=== PATIENT | male | born 1955 | race African-American/Black ===

== ENCOUNTER 2019-08-16 18:45 | Inpatient (IN) | payer OTHER ==
[~2019-08-16] VITALS: Ht 182.9 cm; Wt 96.6 kg
[2019-08-16 18:45] VITALS: BP_SYST 133
[2019-08-16] MEDS ORDERED: NACL 0.9% 1,000 ML IV ONE (19:44)
[2019-08-16 20:22] LABS: BASOPHILS # (AUTO) 0.1 K/uL (0.0-0.2); BASOPHILS % (AUTO) 1.5 % (0.0-2.0); EOSINOPHILS # (AUTO) 0.2 K/uL (0.0-0.4); EOSINOPHILS % (AUTO) 3.6 % (0.0-4.0); HEMATOCRIT 29.6 % (36-54); HEMOGLOBIN 9.8 g/dL (14.0-18.0); LYMPHOCYTES # (AUTO) 1.6 K/uL (1.0-5.5); LYMPHOCYTES % (AUTO) 24.6 % (20.5-51.5); MEAN CORPUSCULAR HEMOGLOBIN 28 pg (27-31); MEAN CORPUSCULAR HGB CONC 33 % (32-36); MEAN CORPUSCULAR VOLUME 85 fL (79.0-98.0); MONOCYTES # (AUTO) 0.6 K/uL (0.0-1.0); MONOCYTES % (AUTO) 9.4 % (1.7-9.3); NEUTROPHILS # (AUTO) 3.8 K/uL (1.8-7.7); NEUTROPHILS % (AUTO) 60.9 % (40.0-70.0); PLATELET COUNT (AUTO) 202 K/uL (130-430); RED BLOOD CELL COUNT(AUTO) 3.48 MIL/uL (4.2-6.2); RED CELL DISTRIBUTION WIDTH 14.7 % (9.0-15.0); WHITE BLOOD COUNT (AUTO) 6.3 K/uL (4.8-10.8)
[2019-08-16 20:24] LABS: CALCIUM 7.3 mg/dL (8.4-11.0); CREATININE 2.2 mg/dL (0.55-1.30); POTASSIUM 3.4 mmol/L (3.5-5.1)
[2019-08-16 20:30] LABS: ALBUMIN 2.6 g/dL (3.4-4.8); TOTAL BILIRUBIN 0.2 mg/dL (0.0-1.0)
[2019-08-16] MEDS ORDERED: ASPI-1153 PO (21:19)
[2019-08-16] MEDS ORDERED: ACET-73 PO (21:19)
[2019-08-16] MEDS ORDERED: BISA5TAB10 PO (21:21)
[2019-08-16] MEDS ORDERED: BISA-95 PO (21:21)
[2019-08-16] MEDS ORDERED: BISA10SU61 RC (21:22)
[2019-08-16] MEDS ORDERED: CAT.1 PO (21:23)
[2019-08-16] MEDS ORDERED: ROSU20TA2 PO (21:24)
[2019-08-16] MEDS ORDERED: COR12.5 PO (21:24)
[2019-08-16] MEDS ORDERED: APIX2.5T PO (21:26)
[2019-08-16] MEDS ORDERED: DOCU-144 PO (21:26)
[2019-08-16] MEDS ORDERED: FERR325T22 PO (21:27)
[2019-08-16] MEDS ORDERED: NA P133E41 RC (21:28)
[2019-08-16] MEDS ORDERED: TAMS-11 PO (21:28)
[2019-08-16] MEDS ORDERED: FOLI-43 PO (21:29)
[2019-08-16] MEDS ORDERED: HYDR100T25 PO (21:30)
[2019-08-16] MEDS ORDERED: FURO-149 PO (21:30)
[2019-08-16] MEDS ORDERED: INSU100V11 SQ (21:31)
[2019-08-16] MEDS ORDERED: MULT-1089 PO (21:32)
[2019-08-16] MEDS ORDERED: HYDR-4272 PO (21:34)
[2019-08-16] MEDS ORDERED: POTA10TA15 PO (21:35)
[2019-08-16] MEDS ORDERED: NIFE90TA24 PO (21:36)
[2019-08-16] MEDS ORDERED: METO5TAB86 PO (21:37)
[2019-08-16] MEDS ORDERED: SSNOVOLOG SUBCUT (21:41)
[2019-08-17] MEDS ORDERED: INSULIN LISPRO SLIDING SCALE 100 UNITS/ML VIAL (humaLOG) SUBCUT PRN
[2019-08-17 00:48] VITALS: BP_SYST 140
[2019-08-17] MEDS: NACL 0.9% 1,000 ML IV SCH ×2 (01:52→10:10)
[2019-08-17] MEDS ORDERED: ZOLPIDEM TARTRATE 5 MG TABLET PO PRN (06:30)
[2019-08-17] MEDS ORDERED: MORPHINE 2 MG/ML INJ. SYRINGE IVP PRN ×2 (06:30)
[2019-08-17] MEDS ORDERED: MAGNESIUM SULFATE 50 ML IV PRN (06:30)
[2019-08-17] MEDS ORDERED: DOCUSATE SODIUM 100 MG CAPSULE PO PRN (06:30)
[2019-08-17] MEDS ORDERED: MUPIROCIN 2% TOPICAL OINTMENT 22 GM NS PRN (06:30)
[2019-08-17] MEDS ORDERED: LORazepam 2 MG/ML VIAL IVP PRN (06:30)
[2019-08-17] MEDS ORDERED: ONDANSETRON HCL 4 MG/2 ML VIAL IVP PRN (06:30)
[2019-08-17] MEDS ORDERED: POTASSIUM CHLORIDE 20 MEQ TAB.PRT.SR PO PRN (06:30)
[2019-08-17] MEDS ORDERED: ACETAMINOPHEN 325 MG TABLET PO PRN (06:30)
[2019-08-17 06:48] LABS: BILIRUBIN,URINE NEGATIVE (NEGATIVE); CLARITY/URINE CLEAR (CLEAR); COLOR,URINE YELLOW (YELLOW); GLUCOSE,URINE NEGATIVE (NEGATIVE); KETONES,URINE NEGATIVE (NEGATIVE); LEUKOCYTE ESTERASE ,URINE 1+ (NEGATIVE); NITRITE, URINE NEGATIVE (NEGATIVE); PH,URINE 5.5 (5.0-8.0); PROTEIN URINE 3+ (NEGATIVE); UROBILINOGEN,URINE 0.2 (0.2-1.0)
[2019-08-17 06:59] LABS: BLOOD, URINE TRACE (NEGATIVE)
[2019-08-17 07:09] LABS: BACTERIA,URINE MANY /HPF (None Seen); MUCUS,URINE 1+ /LPF (None Seen); WBC,URINE 50-80 /HPF (0-3)
[2019-08-17 08:00] VITALS: BP_SYST 151
[2019-08-17] MEDS ORDERED: IPRATROPIUM/ALBUTEROL SULFATE 3 ML AMPUL.NEB (DUONEB) INH PRN (08:00)
[2019-08-17] MEDS ORDERED: HEPARIN SODIUM,PORCINE 5000 UNITS/ML VIAL SUBCUT SCH (09:00)
[2019-08-17] MEDS: APIXABAN 2.5 MG TABLET PO SCH ×2 (09:26→21:39)
[2019-08-17] MEDS: TAMSULOSIN HCL 0.4 MG CAP PO SCH (09:27)
[2019-08-17] MEDS: ASPIRIN 81 MG TABLET(ECOTRIN) PO SCH (09:27)
[2019-08-17] MEDS: CARVEDILOL 12.5 MG TABLET (COREG) PO SCH ×2 (09:27→21:40)
[2019-08-17] MEDS: FOLIC ACID 1 MG TABLET PO SCH (09:27)
[2019-08-17 09:56] LABS: CREATININE 1.88 mg/dL (0.55-1.30); POTASSIUM 3.4 mmol/L (3.5-5.1)
[2019-08-17] MEDS ORDERED: cefTRIAXone 1 GM in D5W 50 ML IV SCH (10:00)
[2019-08-17 10:08] LABS: CALCIUM 6.8 mg/dL (8.4-11.0)
[2019-08-17] MEDS ORDERED: CALCIUM CARBONATE 500 MG/ TAB.CHEW PO ONE (10:45)
[2019-08-17] MEDS ORDERED: FUROSEMIDE 40 MG/4 ML VIAL IVP ONE (10:45)
[2019-08-17] MEDS ORDERED: COMMUNICATION ORDER XX ONE (10:45)
[2019-08-17 12:00] VITALS: BP_SYST 162
[2019-08-17] MEDS ORDERED: PIPERACILLIN/TAZOBACTAM 3.375 GM/ D5W 50 ML IV SCH ×2 (12:00)
[2019-08-17 16:00] VITALS: BP_SYST 180
[2019-08-17 20:30] VITALS: BP_SYST 198
[2019-08-17] MEDS: CALCIUM CARBONATE 500 MG/ TAB.CHEW PO SCH (21:39)
[2019-08-17 21:40] VITALS: BP_SYST 198
[2019-08-18 02:32] VITALS: BP_SYST 180
[2019-08-18] MEDS: NACL 0.9% 1,000 ML IV SCH ×2 (04:00→17:41)
[2019-08-18 05:41] LABS: TOTAL IRON BIND. CAPACITY 178 ug/dL (250-450)
[2019-08-18 05:43] LABS: CREATININE 1.43 mg/dL (0.55-1.30); POTASSIUM 3.3 mmol/L (3.5-5.1)
[2019-08-18] MEDS ORDERED: hydrALAZINE HCL 25 MG TABLET PO SCH (06:00)
[2019-08-18 08:00] VITALS: BP_SYST 182
[2019-08-18] MEDS: APIXABAN 2.5 MG TABLET PO SCH ×2 (08:41→20:39)
[2019-08-18] MEDS: ASPIRIN 81 MG TABLET(ECOTRIN) PO SCH (08:42)
[2019-08-18] MEDS: FOLIC ACID 1 MG TABLET PO SCH (08:43)
[2019-08-18] MEDS: CALCIUM CARBONATE 500 MG/ TAB.CHEW PO SCH ×3 (08:43→20:37)
[2019-08-18] MEDS: TAMSULOSIN HCL 0.4 MG CAP PO SCH (08:43)
[2019-08-18] MEDS: CARVEDILOL 12.5 MG TABLET (COREG) PO SCH ×2 (08:44→20:38)
[2019-08-18] MEDS: FUROSEMIDE 40 MG/4 ML VIAL IVP SCH (08:44)
[2019-08-18] MEDS ORDERED: cloNIDine HCL 0.2 MG TABLET PO PRN (09:00)
[2019-08-18] MEDS: BISACODYL 5 MG TABLET.DR (DULCOLAX) PO ONE ×2 (09:00→10:39)
[2019-08-18] MEDS ORDERED: cefTRIAXone 1 GM in D5W 50 ML IV SCH (10:00)
[2019-08-18] MEDS: FERROUS SULFATE 325 MG TABLET.DR PO SCH (10:39)
[2019-08-18] MEDS: DOCUSATE SODIUM 100 MG CAPSULE PO SCH ×2 (10:40→20:37)
[2019-08-18] MEDS: NIFEDIPINE 90 MG TABLET.SA (PROCARDIA XL 90 MG) PO SCH (10:41)
[2019-08-18] MEDS: CEFTRIAXONE SOD 1 GM/ D5W 50 ML IV SCH ×2 (10:54)
[2019-08-18 12:10] VITALS: BP_SYST 191
[2019-08-18] MEDS: hydrALAZINE HCL 25 MG TABLET PO SCH ×2 (15:54→22:39)
[2019-08-18 16:44] VITALS: BP_SYST 172
[2019-08-18 20:30] VITALS: BP_SYST 151
[2019-08-18 23:24] VITALS: BP_SYST 162
[2019-08-19 03:15] VITALS: BP_SYST 148
[2019-08-19 05:38] VITALS: BP_SYST 143
[2019-08-19 06:08] LABS: INR 1.1 (0.80-1.20); PROTHROMBIN TIME 10.7 SECS (9.5-12.5)
[2019-08-19 06:17] LABS: ALBUMIN 2.4 g/dL (3.4-4.8); CALCIUM 8.2 mg/dL (8.4-11.0); CREATININE 1.64 mg/dL (0.55-1.30); POTASSIUM 3.5 mmol/L (3.5-5.1); TOTAL BILIRUBIN 0.3 mg/dL (0.0-1.0)
[2019-08-19 06:34] LABS: BASOPHILS # (AUTO) 0.1 K/uL (0.0-0.2); BASOPHILS % (AUTO) 1.2 % (0.0-2.0); EOSINOPHILS # (AUTO) 0.3 K/uL (0.0-0.4); EOSINOPHILS % (AUTO) 4.9 % (0.0-4.0); HEMATOCRIT 28.9 % (36-54); HEMOGLOBIN 9.5 g/dL (14.0-18.0); LYMPHOCYTES # (AUTO) 1.5 K/uL (1.0-5.5); LYMPHOCYTES % (AUTO) 22.1 % (20.5-51.5); MEAN CORPUSCULAR HEMOGLOBIN 28 pg (27-31); MEAN CORPUSCULAR HGB CONC 33 % (32-36); MEAN CORPUSCULAR VOLUME 85 fL (79.0-98.0); MONOCYTES # (AUTO) 0.8 K/uL (0.0-1.0); MONOCYTES % (AUTO) 12.2 % (1.7-9.3); NEUTROPHILS # (AUTO) 4.1 K/uL (1.8-7.7); NEUTROPHILS % (AUTO) 59.6 % (40.0-70.0); PLATELET COUNT (AUTO) 191 K/uL (130-430); RED BLOOD CELL COUNT(AUTO) 3.39 MIL/uL (4.2-6.2); RED CELL DISTRIBUTION WIDTH 14.8 % (9.0-15.0); WHITE BLOOD COUNT (AUTO) 6.9 K/uL (4.8-10.8)
[2019-08-19 06:55] LABS: THYROID STIMULATING HORMONE 2.35 uIu/mL (0.34-4.82)
[2019-08-19] MEDS: hydrALAZINE HCL 25 MG TABLET PO SCH (07:00)
[2019-08-19] MEDS: NACL 0.9% 1,000 ML IV SCH (07:02)
[2019-08-19 08:00] VITALS: BP_SYST 150
[2019-08-19] MEDS ORDERED: CIPR-172 PO (09:06)
[2019-08-19] MEDS: FOLIC ACID 1 MG TABLET PO SCH (09:50)
[2019-08-19] MEDS: CARVEDILOL 12.5 MG TABLET (COREG) PO SCH (09:50)
[2019-08-19] MEDS: CALCIUM CARBONATE 500 MG/ TAB.CHEW PO SCH (09:50)
[2019-08-19] MEDS: DOCUSATE SODIUM 100 MG CAPSULE PO SCH (09:50)
[2019-08-19] MEDS: TAMSULOSIN HCL 0.4 MG CAP PO SCH (09:51)
[2019-08-19] MEDS: ASPIRIN 81 MG TABLET(ECOTRIN) PO SCH (09:51)
[2019-08-19] MEDS: NIFEDIPINE 90 MG TABLET.SA (PROCARDIA XL 90 MG) PO SCH (09:51)
[2019-08-19] MEDS: FUROSEMIDE 40 MG/4 ML VIAL IVP SCH (09:51)
[2019-08-19] MEDS: FERROUS SULFATE 325 MG TABLET.DR PO SCH (09:51)
[2019-08-19] MEDS: APIXABAN 2.5 MG TABLET PO SCH (09:52)
[2019-08-19] MEDS: CEFTRIAXONE SOD 1 GM/ D5W 50 ML IV SCH ×2 (11:21)
[2019-08-19 11:42] VITALS: BP_SYST 152
[2019-08-19 12:37] VITALS: BP_SYST 152
== END 2019-08-19 15:20 | DRG 682 ==
LOC: SED 18:45 → STU 23:52
PROVIDERS: ADMIT General Practice; ATTEND General Practice
DX: N17.0 Acute kidney failure with tubular necrosis (principal); I50.43 Acute on chronic combined systolic (congestive) and diastolic (congestive) heart failure; N39.0 Urinary tract infection, site not specified; E44.0 Moderate protein-calorie malnutrition; I13.0 Hypertensive heart and chronic kidney disease with heart failure and stage 1 through stage 4 chronic kidney disease, or unspecified chronic kidney disease; D63.8 Anemia in other chronic diseases classified elsewhere; K21.9 Gastro-esophageal reflux disease without esophagitis; E87.6 Hypokalemia; R55 Syncope and collapse; E83.51 Hypocalcemia; N18.9 Chronic kidney disease, unspecified; E78.5 Hyperlipidemia, unspecified; E11.22 Type 2 diabetes mellitus with diabetic chronic kidney disease; E11.51 Type 2 diabetes mellitus with diabetic peripheral angiopathy without gangrene; Z82.49 Family history of ischemic heart disease and other diseases of the circulatory system; Z83.3 Family history of diabetes mellitus; Z89.512 Acquired absence of left leg below knee; Z87.440 Personal history of urinary (tract) infections; Z79.01 Long term (current) use of anticoagulants; Z91.11 Patient's noncompliance with dietary regimen; Z79.899 Other long term (current) drug therapy; Z79.82 Long term (current) use of aspirin
CPT/HCPCS: 36415; 36600; 70450-TC; 71045; 76770; 80048; 80053; 81000-TC; 82803-TC; 82962; 83540-TC; 83550-TC; 83690-TC; 83735-TC; 83880; 84443-TC; 84484; 85025; 85049-TC; 85379; 85610-TC; 86710; 87081; 93005; 93306; 93970; 94640; 96360; 96361; 97116-GP; 99285; G0378; J0696; J1940; J2543; J7030; J7060; J7620

== ENCOUNTER 2019-09-04 15:37 | Inpatient (IN) | payer MEDICAID, OTHER ==
[~2019-09-04] VITALS: Ht 182.9 cm; Wt 91.6 kg
[2019-09-04 15:37] VITALS: BP_SYST 146
[~2019-09-04 15:37] MED LIST: ACET-73 PO; APIX2.5T PO; ASPI-1153 PO; BISA10SU61 RC; BISA5TAB10 PO; CAT.1 PO; CIPR-172 PO; COR12.5 PO; DOCU-144 PO; FERR325T22 PO; FOLI-43 PO; FURO-149 PO; HYDR-4272 PO; HYDR100T25 PO; INSU100V11 SQ; METO5TAB86 PO; MULT-1089 PO; NA P133E41 RC; NIFE90TA24 PO; POTA10TA15 PO; ROSU20TA2 PO; SSNOVOLOG SUBCUT; TAMS-11 PO
--- NOTE | 2019-09-04 15:37 | NUR ---
Patient to ER bed 6 to gown for evaluation. Side rails up.
--- NOTE | 2019-09-04 15:38 | NUR ---
Patient is awake, alert, and oriented x4. Patient came via ambulance from [facility] with a complaint of cough and congestion x1 week. Patient presents with productive cough, patient does not know what color, states he does not look at it.
[2019-09-04] MEDS ORDERED: PRO40 PO (16:12)
[2019-09-04] MEDS ORDERED: ALBU8.5H8 INH (16:12)
[2019-09-04] MEDS ORDERED: CODE10LI PO (16:12)
[2019-09-04] MEDS ORDERED: INSU100V11 SQ (16:12)
[2019-09-04] MEDS ORDERED: POTA20TA83 PO (16:12)
[2019-09-04] MEDS ORDERED: AZIT250T PO (16:12)
--- NOTE | 2019-09-04 16:12 | NUR ---
Medication reconciliation completed with information provided by Cayla. Any prior medication reconciliation on file was reviewed and corrected.
--- NOTE | 2019-09-04 16:20 | NUR ---
ER Dr. Rico at bedside examining patient.
[2019-09-04 17:03] LABS: BASOPHILS # (AUTO) 0.1 K/uL (0.0-0.2); BASOPHILS % (AUTO) 1.3 % (0.0-2.0); EOSINOPHILS # (AUTO) 0.3 K/uL (0.0-0.4); EOSINOPHILS % (AUTO) 6.5 % (0.0-4.0); HEMATOCRIT 29.6 % (36-54); HEMOGLOBIN 9.8 g/dL (14.0-18.0); LYMPHOCYTES # (AUTO) 1.4 K/uL (1.0-5.5); LYMPHOCYTES % (AUTO) 31.8 % (20.5-51.5); MEAN CORPUSCULAR HEMOGLOBIN 28 pg (27-31); MEAN CORPUSCULAR HGB CONC 33 % (32-36); MEAN CORPUSCULAR VOLUME 84 fL (79.0-98.0); MONOCYTES # (AUTO) 0.7 K/uL (0.0-1.0); MONOCYTES % (AUTO) 14.8 % (1.7-9.3); NEUTROPHILS # (AUTO) 2.1 K/uL (1.8-7.7); NEUTROPHILS % (AUTO) 45.6 % (40.0-70.0); PLATELET COUNT (AUTO) 215 K/uL (130-430); RED BLOOD CELL COUNT(AUTO) 3.53 MIL/uL (4.2-6.2); RED CELL DISTRIBUTION WIDTH 14.7 % (9.0-15.0); WHITE BLOOD COUNT (AUTO) 4.5 K/uL (4.8-10.8)
[2019-09-04 17:04] LABS: BILIRUBIN,URINE NEGATIVE (NEGATIVE); CLARITY/URINE CLEAR (CLEAR); COLOR,URINE YELLOW (YELLOW); GLUCOSE,URINE NEGATIVE (NEGATIVE); KETONES,URINE NEGATIVE (NEGATIVE); LEUKOCYTE ESTERASE ,URINE NEGATIVE (NEGATIVE); NITRITE, URINE NEGATIVE (NEGATIVE); PROTEIN URINE 3+ (NEGATIVE); UROBILINOGEN,URINE 0.2 (0.2-1.0)
[2019-09-04 17:14] LABS: CALCIUM 7.9 mg/dL (8.4-11.0); CREATININE 2.08 mg/dL (0.55-1.30)
[2019-09-04 17:17] LABS: ALBUMIN 2.8 g/dL (3.4-4.8); TOTAL BILIRUBIN 0.2 mg/dL (0.0-1.0)
[2019-09-04 17:41] LABS: BACTERIA,URINE FEW /HPF (None Seen); BLOOD, URINE TRACE (NEGATIVE); FINE GRANULAR CASTS,URINE 0-10 /LPF (None Seen); MUCUS,URINE None Seen /LPF (None Seen); URINE AMORPHOUS URATE 2+ /HPF (None Seen); WBC,URINE 0-3 /HPF (0-3)
[2019-09-04] MEDS ORDERED: PIPERACILLIN/TAZO 3.375 GM in NS 50 ML IV ONE (18:00)
--- NOTE | 2019-09-04 18:01 | NUR ---
Patient will be admitted to care of Dr. Ortega. Admitted to telemetry unit. No rooms available at this time per MT Mina. Belongings list completed. Complete and up to date summary report printed. SBAR report to be given at bedside with opportunity for questions.
[2019-09-04] MEDS ORDERED: PIPERACILLIN/TAZOBACTAM 3.375 GM/VIAL (ZOSYN) IV ONE ×2 (18:18→23:06)
[2019-09-04 18:31] LABS: PROTHROMBIN TIME 10.4 SECS (9.5-12.5)
--- NOTE | 2019-09-04 18:38 | NUR ---
Patient is resting in bed. No signs or symptoms of distress noted.
--- NOTE | 2019-09-04 19:15 | NUR ---
Report given to MT Mckinney for continuation of care.
--- NOTE | 2019-09-04 19:15 | NUR ---
Report received from MT Dutta. Patient to be admitted, awaiting room assignment. Will continue to follow up and monitor.
--- NOTE | 2019-09-04 19:40 | NUR ---
Patient will be admitted to care of Dr. Ortega. Admitted to Telemetry unit. Will go to room 100B. Belongings list completed. Complete and up to date summary report printed. SBAR report to be given at bedside with opportunity for questions.
--- NOTE | 2019-09-04 20:49 | NUR ---
ADMIT NOTE Received pt from ER to the floor with a diagnosis of PNA. Admission process initiated. patient oriented to pain management, safety and call light-teach back done AWAKE alert call hackett with patient FALL measures explained patient has left BKA verbalize understanding .
[2019-09-04 20:53] VITALS: BP_SYST 137
--- NOTE | 2019-09-04 21:15 | NUR ---
BSG BLOOD SUGAR GLUCOSE 92 mg dl apple juice po given & tolerating patient awake also alert .
[2019-09-04] MEDS ORDERED: ACETAMINOPHEN 500 MG TABLET PO PRN (22:00)
[2019-09-04] MEDS ORDERED: cloNIDine HCL 0.1 MG TABLET PO PRN (22:00)
[2019-09-04] MEDS ORDERED: BISACODYL 5 MG TABLET.DR (DULCOLAX) PO PRN (22:00)
[2019-09-04] MEDS ORDERED: CODEINE PHOSPHATE PO PRN (22:00)
[2019-09-04] MEDS ORDERED: GUAIFENESIN PO PRN (22:00)
[2019-09-04] MEDS ORDERED: ALBUTEROL MDI INHALATION 8 GM INH INH PRN (22:00)
[2019-09-04] MEDS ORDERED: HYDROcodone/ACETAMIN 5-325 MG TAB (NORCO/ VICODIN) PO PRN (22:00)
[2019-09-04] MEDS ORDERED: SODIUM PHOSPHATE,MONO-DIBASIC 133 ML ENEMA RC PRN (22:00)
[2019-09-04] MEDS ORDERED: BISACODYL 10 MG/SUPPOSITORY RC PRN (22:00)
[2019-09-04] MEDS ORDERED: DOCUSATE SODIUM 100 MG CAPSULE PO PRN (22:00)
[2019-09-04] MEDS ORDERED: [UNRECOGNIZED DRUG - OTHER] PO PRN (22:00)
[2019-09-04] MEDS ORDERED: ONDANSETRON HCL 4 MG/2 ML VIAL IVP PRN (22:15)
[2019-09-04] MEDS ORDERED: LORazepam 2 MG/ML VIAL IVP PRN (22:15)
[2019-09-04] MEDS ORDERED: INSULIN REGULAR, HUMAN 100 UNITS/ML, 10 ML VIAL (humuLIN R) SUBCUT PRN (22:15)
[2019-09-04] MEDS: LR 1,000 ML IV SCH (23:26)
--- NOTE | 2019-09-04 23:37 | NUR ---
Renal ULTRASOUND in progress @ the bedside / .
[2019-09-05] MEDS ORDERED: PIPERACILLIN/TAZO 3.375 GM in NS 50 ML IV SCH ×2
[2019-09-05 00:25] VITALS: BP_SYST 137
--- NOTE | 2019-09-05 00:38 | NUR ---
CONSULT: CONSULT CALLED FOR DR. NESTOR HERR I SPOKE WITH BRANDON MCCORMICK REASON FOR CONSULT: PNEUMONIA REQUESTING CONSULT: DR. AUGIE MAGALLON PLANT ASSOCIATE PHONE NUMBER:[phone]
--- NOTE | 2019-09-05 00:45 | NUR ---
CONSULT: CONSULT CALLED FOR DR. FERGUSON I SPOKE WITH BRANDON MCCORMICK REASON FOR CONSULT: RENAL FAILURE REQUESTING CONSULT: DR. AUGIE MAGALLON SENIOR TALENT ACQUISITION SPECIALIST PHONE NUMBER: [phone]
--- NOTE | 2019-09-05 01:43 | NUR ---
DR NESTOR AGUILA HERE TO SEE PATIENT NEW ORDERS OBTAINED .
--- NOTE | 2019-09-05 02:16 | NUR ---
FLU SWAB A & B nasal COLLECTED & SENT TO LAB .
[2019-09-05] MEDS ORDERED: OXYMETAZOLINE HCL 0.05% NASAL SPRAY NS PRN (02:30)
--- NOTE | 2019-09-05 05:04 | NUR ---
PATIENT AWAKE USING URINAL HOB ELEVATED , Patient X RAY SINUS , CALLED & SPOKE WITH RD & AWARE OF ORDER ARUNA .
[2019-09-05] MEDS: HYDROcodone/ACETAMIN 10-325 MG TAB PO PRN ×2 (06:44→22:41)
[2019-09-05 07:39] LABS: BASOPHILS % (AUTO) 0.8 % (0.0-2.0); EOSINOPHILS # (AUTO) 0.3 K/uL (0.0-0.4); EOSINOPHILS % (AUTO) 5.9 % (0.0-4.0); HEMATOCRIT 30.6 % (36-54); LYMPHOCYTES # (AUTO) 1.1 K/uL (1.0-5.5); MEAN CORPUSCULAR HEMOGLOBIN 28 pg (27-31); MEAN CORPUSCULAR HGB CONC 33 % (32-36); MEAN CORPUSCULAR VOLUME 84 fL (79.0-98.0); MONOCYTES % (AUTO) 18.4 % (1.7-9.3); NEUTROPHILS # (AUTO) 2.9 K/uL (1.8-7.7); NEUTROPHILS % (AUTO) 54.9 % (40.0-70.0); PLATELET COUNT (AUTO) 222 K/uL (130-430); RED BLOOD CELL COUNT(AUTO) 3.63 MIL/uL (4.2-6.2); RED CELL DISTRIBUTION WIDTH 14.7 % (9.0-15.0); WHITE BLOOD COUNT (AUTO) 5.4 K/uL (4.8-10.8)
[2019-09-05 07:52] LABS: CREATININE 1.76 mg/dL (0.55-1.30); PHOSPHORUS 4.6 mg/dL (2.7-4.5); POTASSIUM 3.6 mmol/L (3.5-5.1)
[2019-09-05 07:55] VITALS: BP_SYST 156
--- NOTE | 2019-09-05 07:55 | NUR ---
INITIAL ROUNDS Received pt AAOx4, no s/s resp distress, no c/o pain or discomfort. IVF infusing well to left hand at ordered rate with no s/s infiltration to site. Pt just used urinal with yellow urine noted. Plan of care fo9r the day reviewed with pt-pt verbalized his understanding. Pain management, PNA, skin and safety discussed-teach back done. Side rails up x3, bed alarm on for safety.
[2019-09-05] MEDS: FUROSEMIDE 40 MG TABLET PO SCH (09:48)
[2019-09-05] MEDS: NIFEDIPINE 90 MG TABLET.SA (PROCARDIA XL 90 MG) PO SCH (09:49)
[2019-09-05] MEDS: hydrALAZINE HCL 25 MG TABLET PO SCH ×3 (09:49→22:43)
[2019-09-05] MEDS: CARVEDILOL 12.5 MG TABLET (COREG) PO SCH ×2 (09:49→22:42)
[2019-09-05] MEDS: PIPERACILLIN/TAZO 3.375/DEX-IS 50 ML IV SCH ×2 (09:50→16:53)
[2019-09-05] MEDS: ASPIRIN 81 MG TABLET(ECOTRIN) PO SCH (09:50)
[2019-09-05] MEDS: FERROUS GLUCONATE 300 MG TABLET PO SCH ×2 (09:50→22:44)
[2019-09-05] MEDS: POTASSIUM CHLORIDE 20 MEQ TAB.PRT.SR PO SCH (09:50)
[2019-09-05] MEDS: PANTOPRAZOLE SODIUM 40 MG TAB PO SCH (09:50)
[2019-09-05] MEDS: MULTIVITAMINS TAB 1 TABLET PO SCH (09:50)
[2019-09-05] MEDS: FOLIC ACID 1 MG TABLET PO SCH (09:50)
[2019-09-05] MEDS: METOCLOPRAMIDE HCL 10 MG TABLET PO SCH ×2 (09:50→22:43)
[2019-09-05] MEDS: TAMSULOSIN HCL 0.4 MG CAP PO SCH (09:50)
[2019-09-05] MEDS: FLUTICASONE PROPIONATE 50 mCg/SPRAY 16 GM NS SCH (09:51)
[2019-09-05] MEDS: INSULIN GLARGINE 100 UNITS/ML 10 ML VIAL SQ SCH (09:55)
[2019-09-05] MEDS: APIXABAN 2.5 MG TABLET PO SCH ×2 (09:56→22:45)
[2019-09-05 10:09] LABS: ERYTHROCYTE SEDIMENTATION RATE 70 MM/HR (0-15)
--- NOTE | 2019-09-05 10:20 | NUR ---
BLADDER SCAN/ Pt seen by Dr. Smith, Bladder Scan ordered due to pt showing 400 ml on renal UZS. Informed MD that I emptied the pt's urinal of 480 ml just an hour ago. Bladder scan done on pt-noted 72 ml urine noted. No distension. Pt tolerated well.
--- NOTE | 2019-09-05 10:46 | NUR ---
Nutrition Update David Scale 17 noted. Pt admitted for pneumonia, elevated troponin. Diet: cardiac BMI: 27.8 kg/m2 RD to follow per nutrition care standards.
--- NOTE | 2019-09-05 11:03 | NUR ---
UROLOGY CONSULT spoke to Jonathan from the office of Dr Dixon and made aware, she will inform Dr. Dixon.
--- NOTE | 2019-09-05 11:19 | NUR ---
OFFICE OF THE UROLOGIST DR Blair ORTIZ CALLED RE: DENIAL OF THE UROLOGY CONSULT. SPOKE TO MINA.
[2019-09-05] MEDS: ALBUTEROL SULFATE 0.083% 2.5 MG/3 ML VIAL.NEB INH PRN ×2 (13:27→19:32)
--- NOTE | 2019-09-05 14:10 | NUR ---
ROUNDS Pt resting quietly in bed with no s/s resp distress, no c/o pain or discomfort. Pt states he feels better since breathing treatment earlier. Needs met, call light within reach.
[2019-09-05 14:16] VITALS: BP_SYST 156
--- NOTE | 2019-09-05 15:39 | NUR ---
Delinquent Tax Collector Note RUBBER GASKET INSPECTOR TRIMMER conducted a Discharge Plan Assessment. JAGRUTI met with patient at bedside who is awake and oriented but lethargic. Patient worked at [employer] in [place] up until January when he had a BKA. He then went to [facility]. He subsequently went to [facility] in March. His PPO insurance stopped, (probably 08/27/19) due to his no longer working and he did not pursue further health insurance. As per Álvaro at [facility], , patient has had a difficult time affording [facility] and has been declining there. He is on the med program as he was not managing his DM well. Álvaro wants to evaluate him prior to discharge to determine if he can return to [place]. If not, patient may need SNF, which would be under [employer] [facility], a barrier to placement. Possibly patient would need AL that provides a higher level of care. Kenneth Barron has met with patient to apply for [employer]. Unclear if patient will qualify. Will continue to follow. Addendum: 09/05/19 at 1609 by Katie Rocha LCSW Phoned patient's son, Ernie Zapien [phone], no answer, no voicemail. Phoned son, Shaheed Zapien [phone]. Shaheed stated he thought patient's income was about $4000/month. They looked at [employer] but the share of cost would be high. He said the two sons were pursuing COBRA. Son Ernie called. He stated patient just started getting Social Security income this month and that the total disability and SS income was about $4100. He said that he had not started COBRA for patient and wanted to see if [employer] was a better choice. RUBBER GASKET INSPECTOR TRIMMER explained that the share of cost would be very high and care options would be better with COBRA. Gave him Kenneth's number to follow up. Notified him that his voicemail is full. Notified Kenneth of above. He will follow up.
[2019-09-05 16:15] VITALS: BP_SYST 160
--- NOTE | 2019-09-05 16:15 | NUR ---
BATHROOM Pt assisted to the bathroom using the wheelchair. Pt had a BM and voided. Bladder scan done soon after with 54 ml of urine noted. Pt tolerated well.
[2019-09-05] MEDS: LR 1,000 ML IV SCH ×2 (16:45→18:15)
[2019-09-05] MEDS: guaiFENesin/DEXTROMETHORPHAN 10 ML UDC PO PRN (17:09)
--- NOTE | 2019-09-05 18:38 | NUR ---
CLOSING NOTE Pt resting quietly in bed with no s/s resp distress, no c/o pain or discomfort. IVF infusing well to LFA at ordered rate with no s/s infiltration to site. Needs met, call light within reach.
[2019-09-05 20:34] VITALS: BP_SYST 145
--- NOTE | 2019-09-05 21:15 | NUR ---
PATIENT AWAKE ALERT FAMILY @ THE BEDSIDE , HOB ELEVATED ON ROOM AIR 02 SAT 96 % chest movement symmetrical also unlabored .
[2019-09-05] MEDS: ATORVASTATIN 20 MG TABLET PO SCH (22:42)
--- NOTE | 2019-09-05 23:44 | NUR ---
NORCO 10 /325 MG PO ADMINISTER FOR GENERAL PAIN & HELPFUL .
[2019-09-05 23:50] VITALS: BP_SYST 162
[2019-09-06] MEDS: PIPERACILLIN/TAZO 3.375/DEX-IS 50 ML IV SCH ×3 (00:16→17:18)
--- NOTE | 2019-09-06 02:12 | NUR ---
Hourly Rounding HOB elevated chest movement symmetrical no use of accessory muscles no acute distress .
--- NOTE | 2019-09-06 02:13 | NUR ---
Bed side URINAL PATIENT USING as needed clear yellow urine noted no complaints made .
[2019-09-06] MEDS: guaiFENesin/DEXTROMETHORPHAN 10 ML UDC PO PRN ×3 (06:16→20:38)
[2019-09-06] MEDS: LR 1,000 ML IV SCH (06:16)
--- NOTE | 2019-09-06 06:21 | NUR ---
SPUTUM COLLECTION COLLECTED & SENT LAB .
--- NOTE | 2019-09-06 06:22 | NUR ---
ROBITUSSIN 5 ML PO GIVEN FOR COUGH & HELPFUL / .
[2019-09-06 08:09] LABS: ALBUMIN 2.4 g/dL (3.4-4.8); CALCIUM 7.2 mg/dL (8.4-11.0); CREATININE 2.04 mg/dL (0.55-1.30); PHOSPHORUS 4.8 mg/dL (2.7-4.5); POTASSIUM 3.4 mmol/L (3.5-5.1); TOTAL BILIRUBIN 0.3 mg/dL (0.0-1.0)
[2019-09-06 08:41] VITALS: BP_SYST 158
[2019-09-06 08:41] LABS: BASOPHILS # (AUTO) 0.1 K/uL (0.0-0.2); BASOPHILS % (AUTO) 0.9 % (0.0-2.0); EOSINOPHILS # (AUTO) 0.3 K/uL (0.0-0.4); EOSINOPHILS % (AUTO) 4.7 % (0.0-4.0); HEMOGLOBIN 9.4 g/dL (14.0-18.0); LYMPHOCYTES # (AUTO) 1.4 K/uL (1.0-5.5); LYMPHOCYTES % (AUTO) 25.7 % (20.5-51.5); MEAN CORPUSCULAR HEMOGLOBIN 28 pg (27-31); MEAN CORPUSCULAR HGB CONC 34 % (32-36); MEAN CORPUSCULAR VOLUME 83 fL (79.0-98.0); MONOCYTES # (AUTO) 0.9 K/uL (0.0-1.0); MONOCYTES % (AUTO) 17.1 % (1.7-9.3); NEUTROPHILS # (AUTO) 2.7 K/uL (1.8-7.7); NEUTROPHILS % (AUTO) 51.6 % (40.0-70.0); PLATELET COUNT (AUTO) 204 K/uL (130-430); RED BLOOD CELL COUNT(AUTO) 3.37 MIL/uL (4.2-6.2); RED CELL DISTRIBUTION WIDTH 14.5 % (9.0-15.0); WHITE BLOOD COUNT (AUTO) 5.3 K/uL (4.8-10.8)
[2019-09-06] MEDS: NIFEDIPINE 90 MG TABLET.SA (PROCARDIA XL 90 MG) PO SCH (08:46)
[2019-09-06] MEDS: hydrALAZINE HCL 25 MG TABLET PO SCH ×3 (08:47→20:36)
[2019-09-06] MEDS: ASPIRIN 81 MG TABLET(ECOTRIN) PO SCH (08:47)
[2019-09-06] MEDS: METOCLOPRAMIDE HCL 10 MG TABLET PO SCH ×2 (08:47→20:37)
[2019-09-06] MEDS: POTASSIUM CHLORIDE 20 MEQ TAB.PRT.SR PO SCH (08:47)
[2019-09-06] MEDS: MULTIVITAMINS TAB 1 TABLET PO SCH (08:47)
[2019-09-06] MEDS: FERROUS GLUCONATE 300 MG TABLET PO SCH ×2 (08:47→20:37)
[2019-09-06] MEDS: TAMSULOSIN HCL 0.4 MG CAP PO SCH (08:47)
[2019-09-06] MEDS: FOLIC ACID 1 MG TABLET PO SCH (08:48)
[2019-09-06] MEDS: CARVEDILOL 12.5 MG TABLET (COREG) PO SCH ×2 (08:48→20:37)
[2019-09-06] MEDS: FUROSEMIDE 40 MG TABLET PO SCH (08:48)
[2019-09-06] MEDS: PANTOPRAZOLE SODIUM 40 MG TAB PO SCH (08:48)
[2019-09-06] MEDS: FLUTICASONE PROPIONATE 50 mCg/SPRAY 16 GM NS SCH (08:50)
[2019-09-06] MEDS: APIXABAN 2.5 MG TABLET PO SCH ×2 (09:00→20:40)
[2019-09-06] MEDS: INSULIN GLARGINE 100 UNITS/ML 10 ML VIAL SQ SCH (09:00)
[2019-09-06 10:25] LABS: ERYTHROCYTE SEDIMENTATION RATE 75 MM/HR (0-15)
[2019-09-06 12:09] VITALS: BP_SYST 147
--- NOTE | 2019-09-06 12:15 | NUR ---
Mobility Out of bed to bathroom via wheelchair mild dizziness out of bed safety/fall precaution initiated, perineal care given .
[2019-09-06 15:21] VITALS: BP_SYST 130
--- NOTE | 2019-09-06 17:15 | NUR ---
No sign of acute respiratory distress, occasionally coughing , afebrile, needs attended.
[2019-09-06 19:00] VITALS: BP_SYST 133
--- NOTE | 2019-09-06 19:15 | NUR ---
change of shift.pt.presents quiescent affect;calm,resting.pt.presents admit dx;pna.pt.presents congested chest.breathing pattern slightly labored @room air.no c/o pain,nausea.pt.hx;lt.bka.pt's wheel-chair w/in the room.iv access;iv fluids infusing.call light/telephone placed w/in reach of the pt.
[2019-09-06 20:00] VITALS: BP_SYST 133
--- NOTE | 2019-09-06 20:00 | NUR ---
pt.assessed v/s assessed;values w/in normal limits.no c/o pain,nausea.i have apprised the pt.that i may provide snacks/beverages w/in the shift;no requests posited @this hour.i have attended to the urinal,measured/placed w/in reach of the pt.iv access intact;patent. iv fluids infusing.pt.presents lt.bka.pt.capable to reposition self.general status stable.respiratory status stable:slightly labored; O2-0SAT%=96%. call light/telephone w/in reach of the pt.
--- NOTE | 2019-09-06 20:30 | NUR ---
i have assessed the blood glucose;values:123mg/dl.i have apprised the pt.of the value.no requests posited @this hour.
[2019-09-06] MEDS: ATORVASTATIN 20 MG TABLET PO SCH (20:37)
--- NOTE | 2019-09-06 21:00 | NUR ---
2100pmedications administered.i have administered:robitussin;dm;5ml per the pt';s requests;pt.presents cough. no requests posited @this hour.
--- NOTE | 2019-09-06 22:00 | NUR ---
pt.assessed.pt.presents quiescent affect;calm,somnolent.iv access intact;patent;iv fluids infusing.i have attended to the urinal;measured,placed w/in reach of the pt.general status stable.respiratory status stable;o2-sat%=96%.pt.capable to reposition self.call light/telephone w/in reach of the pt.
[2019-09-07] VITALS: BP_SYST 135
--- NOTE | 2019-09-07 | NUR ---
pt.assessed v/s assessed;values w/in normal limits.no c/o pain,nausea.no requests posited@this hour.iv access intact;patent. i have attended to the urinal;measured;placed w/in reach of the pt.general status stable.respiratory status stable;o2-sat%= 96%pt.capable to reposition self.call light/telephone w/in reach of the pt.
[2019-09-07] MEDS: LR 1,000 ML IV SCH ×4 (00:15→20:29)
[2019-09-07] MEDS: PIPERACILLIN/TAZO 3.375/DEX-IS 50 ML IV SCH ×3 (01:10→16:39)
--- NOTE | 2019-09-07 02:00 | NUR ---
pt.assessed.pt.presents quiescent affect;calm,somnolent.iv access intact;patent;iv fluids infusing.i have inspected the urinal clean.w/in reach of the pt.general status stable.respiratory status stable;02-sat%=96%.pt capable to reposition self.call light/telephone w/in reach of the pt.
--- NOTE | 2019-09-07 04:00 | NUR ---
pt.assessed.pt.presents quiescent affect;calm,somnolent.iv access intact;patent;iv fluids infusing.urinal attended to measured/placed w/in the pt's reach general status stable.respiratory status stable:o2-sat%=96%.pt capble to reposition self.call light/telephone w/in reach of the pt.
--- NOTE | 2019-09-07 06:30 | NUR ---
pt.assessed.blood glucose assessed;value;82mg/dl.pt. declined a snack.pt stated he feels ok;pt is asymptomatic. iv access intact;patent;iv fluids infusing.pt.capable to reposition self.o2-sat%=94%.call light/telephone w/in reach of the pt.
[2019-09-07 07:12] LABS: C-REACTIVE PROTEIN QUANT 6.3 mg/dL (0-0.5); CALCIUM 7.4 mg/dL (8.4-11.0); CREATININE 1.94 mg/dL (0.55-1.30); PHOSPHORUS 4.8 mg/dL (2.7-4.5); POTASSIUM 3.4 mmol/L (3.5-5.1)
--- NOTE | 2019-09-07 07:38 | NUR ---
Opening Note received bedside SBAR report from salesperson hearing aids RN, patient resting in bed, no acute distress noted, respirations even and unlabored, educated patient on use of call light and asked to call for assistance, patient verbalized understanding, call light in reach, educated patient on use of bed alarm for patient safety, patient refusing bed alarm, bed in low and locked position.
[2019-09-07 08:00] VITALS: BP_SYST 147
[2019-09-07] MEDS: TAMSULOSIN HCL 0.4 MG CAP PO SCH (08:53)
[2019-09-07] MEDS: ASPIRIN 81 MG TABLET(ECOTRIN) PO SCH (08:53)
[2019-09-07] MEDS: POTASSIUM CHLORIDE 20 MEQ TAB.PRT.SR PO SCH (08:53)
[2019-09-07] MEDS: PANTOPRAZOLE SODIUM 40 MG TAB PO SCH (08:54)
[2019-09-07] MEDS: NIFEDIPINE 90 MG TABLET.SA (PROCARDIA XL 90 MG) PO SCH (08:54)
[2019-09-07] MEDS: FOLIC ACID 1 MG TABLET PO SCH (08:54)
[2019-09-07] MEDS: hydrALAZINE HCL 25 MG TABLET PO SCH ×3 (08:54→20:30)
[2019-09-07] MEDS: FERROUS GLUCONATE 300 MG TABLET PO SCH ×2 (08:54→20:30)
[2019-09-07] MEDS: METOCLOPRAMIDE HCL 10 MG TABLET PO SCH ×2 (08:54→20:31)
[2019-09-07] MEDS: FUROSEMIDE 40 MG TABLET PO SCH (08:55)
[2019-09-07] MEDS: CARVEDILOL 12.5 MG TABLET (COREG) PO SCH ×2 (08:55→20:30)
[2019-09-07] MEDS: MULTIVITAMINS TAB 1 TABLET PO SCH (08:55)
[2019-09-07] MEDS: FLUTICASONE PROPIONATE 50 mCg/SPRAY 16 GM NS SCH (08:56)
[2019-09-07] MEDS: APIXABAN 2.5 MG TABLET PO SCH ×2 (08:57→20:31)
[2019-09-07 09:28] LABS: BASOPHILS % (AUTO) 0.6 % (0.0-2.0); EOSINOPHILS # (AUTO) 0.3 K/uL (0.0-0.4); EOSINOPHILS % (AUTO) 5.9 % (0.0-4.0); HEMATOCRIT 27.5 % (36-54); HEMOGLOBIN 9.6 g/dL (14.0-18.0); LYMPHOCYTES # (AUTO) 1.6 K/uL (1.0-5.5); LYMPHOCYTES % (AUTO) 29.6 % (20.5-51.5); MEAN CORPUSCULAR HEMOGLOBIN 29 pg (27-31); MEAN CORPUSCULAR HGB CONC 35 % (32-36); MEAN CORPUSCULAR VOLUME 84 fL (79.0-98.0); MONOCYTES % (AUTO) 17.5 % (1.7-9.3); NEUTROPHILS # (AUTO) 2.6 K/uL (1.8-7.7); NEUTROPHILS % (AUTO) 46.4 % (40.0-70.0); PLATELET COUNT (AUTO) 201 K/uL (130-430); RED BLOOD CELL COUNT(AUTO) 3.28 MIL/uL (4.2-6.2); RED CELL DISTRIBUTION WIDTH 14.6 % (9.0-15.0); WHITE BLOOD COUNT (AUTO) 5.5 K/uL (4.8-10.8)
--- NOTE | 2019-09-07 09:44 | NUR ---
RN Rounds patient resting in bed, respirations even and unlabored on room air, patient denies any pain, no acute distress noted.
[2019-09-07 10:24] LABS: ERYTHROCYTE SEDIMENTATION RATE 75 MM/HR (0-15)
[2019-09-07 11:18] VITALS: BP_SYST 144
[2019-09-07] MEDS ORDERED: POTASSIUM CHLORIDE 20 MEQ TAB.PRT.SR PO ONE (11:45)
--- NOTE | 2019-09-07 11:55 | NUR ---
RN Rounds patient resting in bed, respirations even and unlabored on room air, patient denies any pain, no acute distress noted.
--- NOTE | 2019-09-07 13:15 | NUR ---
Bedpan patient requesting to use bedpan, assisted patient to use bedpan, patient voided and had BM x1, patient cleaned, gown and linen changed, patient tolerated well, patient resting in bed.
--- NOTE | 2019-09-07 15:20 | NUR ---
RN Rounds patient resting in bed, no acute distress noted, patient denies any pain, respirations even and unlabored on room air, no additional needs at this time.
[2019-09-07 15:35] VITALS: BP_SYST 144
--- NOTE | 2019-09-07 17:23 | NUR ---
RN Rounds patient resting in bed, patient denies any pain, informed patient that per lab they need a new sputum specimen, provided patient with sterile specimen cup, per patient he will notify RN if he is able to produce a sputum sample.
--- NOTE | 2019-09-07 19:13 | NUR ---
Closing Note bedside SBAR report given to receiving RN, patient resting in bed, no acute distress noted, respirations even and unlabored on room air, educated patient on use of call light and asked to call for assistance, patient verbalized understanding, call light in reach, bed in low and locked position, bed alarm on, care endorsed to overnight stocker RN.
--- NOTE | 2019-09-07 19:15 | NUR ---
OPENING NOTES Bedside report received from dayshift nurse. Patient received lying in bed, Aox4, watching TV. No s/s of acute distress noted. Breathing is even and unlabored. IVF infusing well. Call light with patient. Bed alarm on. Will continue to monitor.
[2019-09-07 20:00] VITALS: BP_SYST 152
[2019-09-07] MEDS: guaiFENesin/DEXTROMETHORPHAN 10 ML UDC PO PRN (20:29)
[2019-09-07] MEDS: ATORVASTATIN 20 MG TABLET PO SCH (20:30)
--- NOTE | 2019-09-07 22:45 | NUR ---
TRANSFER OF CARE Report given to MT Liz. Patient in bed sleeping at this time. No s/s of acute distress noted. Breathing even and unlabored. IVF infusing well. Skin warm and dry to touch. All needs met. Call light with patient. Bed alarm on. Will continue to monitor.
--- NOTE | 2019-09-07 23:05 | NUR ---
NOTES RECEIVED PATIENT ASLEEP IN BED, NOT IN DISTRESS, VITALS STABLE. NO SIGNS OF ANY PAIN AND DISCOMFORT NOTED AT THIS TIME. SAFETY AND FALL MEASURES IN PLACED. BED IN LOW AND LOCKED POSITION. CALL LIGHT PLACED WITHIN REACH.
[2019-09-08] MEDS: PIPERACILLIN/TAZO 3.375/DEX-IS 50 ML IV SCH ×3 (00:43→17:35)
[2019-09-08 01:57] VITALS: BP_SYST 112; BP_SYST 149
--- NOTE | 2019-09-08 02:16 | NUR ---
PATIENT RESTING: Patient resting quietly. No acute distress noted. Vital signs within normal range.
--- NOTE | 2019-09-08 06:49 | NUR ---
CLOSING NOTES PATIENT AWAKE, VITALS STABLE, DENIES ANY PAIN AND DISCOMFORT AT THIS TIME. ALL NEEDS ATTENDED TO. SAFETY MEASURES MAINTAINED. CALL LIGHT PLACED WITHIN REACH.
--- NOTE | 2019-09-08 08:00 | NUR ---
received awake and no c/o discomfort vss iv infusing at 100hr resp even and unlabored taking diet well continue to monitor.
[2019-09-08 08:11] LABS: BASOPHILS % (AUTO) 0.9 % (0.0-2.0); EOSINOPHILS # (AUTO) 0.3 K/uL (0.0-0.4); EOSINOPHILS % (AUTO) 5.8 % (0.0-4.0); HEMATOCRIT 29.2 % (36-54); HEMOGLOBIN 9.6 g/dL (14.0-18.0); LYMPHOCYTES # (AUTO) 1.5 K/uL (1.0-5.5); LYMPHOCYTES % (AUTO) 31.1 % (20.5-51.5); MEAN CORPUSCULAR HEMOGLOBIN 27 pg (27-31); MEAN CORPUSCULAR HGB CONC 33 % (32-36); MEAN CORPUSCULAR VOLUME 83 fL (79.0-98.0); MONOCYTES # (AUTO) 0.7 K/uL (0.0-1.0); MONOCYTES % (AUTO) 14.6 % (1.7-9.3); NEUTROPHILS # (AUTO) 2.3 K/uL (1.8-7.7); NEUTROPHILS % (AUTO) 47.6 % (40.0-70.0); PLATELET COUNT (AUTO) 221 K/uL (130-430); RED BLOOD CELL COUNT(AUTO) 3.51 MIL/uL (4.2-6.2); RED CELL DISTRIBUTION WIDTH 14.3 % (9.0-15.0); WHITE BLOOD COUNT (AUTO) 4.9 K/uL (4.8-10.8)
[2019-09-08 08:27] LABS: C-REACTIVE PROTEIN QUANT 4.9 mg/dL (0-0.5); CALCIUM 7.9 mg/dL (8.4-11.0); CREATININE 1.74 mg/dL (0.55-1.30); PHOSPHORUS 4.1 mg/dL (2.7-4.5); POTASSIUM 3.5 mmol/L (3.5-5.1)
--- NOTE | 2019-09-08 08:55 | NUR ---
PAGED PAGED OMID COY AT [phone] SPOKE WITH GAIL.
[2019-09-08 08:57] LABS: ERYTHROCYTE SEDIMENTATION RATE 81 MM/HR (0-15)
[2019-09-08] MEDS: FLUTICASONE PROPIONATE 50 mCg/SPRAY 16 GM NS SCH (09:00)
[2019-09-08] MEDS: FERROUS GLUCONATE 300 MG TABLET PO SCH ×2 (09:00→20:58)
[2019-09-08] MEDS: ASPIRIN 81 MG TABLET(ECOTRIN) PO SCH (09:00)
[2019-09-08] MEDS: TAMSULOSIN HCL 0.4 MG CAP PO SCH (09:20)
[2019-09-08] MEDS: FUROSEMIDE 40 MG TABLET PO SCH (09:21)
[2019-09-08] MEDS: hydrALAZINE HCL 25 MG TABLET PO SCH ×3 (09:22→21:00)
[2019-09-08] MEDS: FOLIC ACID 1 MG TABLET PO SCH (09:22)
[2019-09-08] MEDS: PANTOPRAZOLE SODIUM 40 MG TAB PO SCH (09:22)
[2019-09-08] MEDS: POTASSIUM CHLORIDE 20 MEQ TAB.PRT.SR PO SCH (09:23)
[2019-09-08] MEDS: MULTIVITAMINS TAB 1 TABLET PO SCH (09:23)
[2019-09-08] MEDS: CARVEDILOL 12.5 MG TABLET (COREG) PO SCH ×2 (09:24→20:59)
[2019-09-08] MEDS: NIFEDIPINE 90 MG TABLET.SA (PROCARDIA XL 90 MG) PO SCH (09:24)
[2019-09-08] MEDS: METOCLOPRAMIDE HCL 10 MG TABLET PO SCH ×2 (09:24→20:59)
[2019-09-08] MEDS: APIXABAN 2.5 MG TABLET PO SCH ×2 (09:28→21:01)
[2019-09-08] MEDS: LR 1,000 ML IV SCH ×3 (09:31→20:58)
--- NOTE | 2019-09-08 10:43 | NUR ---
post void residual patient voided 200 ml. post void residual [address] Smith was notified by MT Thomas
--- NOTE | 2019-09-08 11:30 | NUR ---
dr tang want alvarez to be inserted but pt refused benefits and reason explained continue to monitor urinary output
[2019-09-08 12:00] VITALS: BP_SYST 135
[2019-09-08 16:00] VITALS: BP_SYST 130
--- NOTE | 2019-09-08 18:13 | NUR ---
bs 107 and no coverage needed remains in no c/o discomfort vss.continues to void and have bms and up to br with wheelchair taking diet wellcontinue to monitor
--- NOTE | 2019-09-08 19:35 | NUR ---
report to maintenance supervisor 2nd shift rn given
--- NOTE | 2019-09-08 19:40 | NUR ---
ROUNDS PATIENT IN BED, WATCHING TV, DENIES ANY PAIN AND DISCOMFORT AT THIS TIME. ASSESSMENT DONE AND DOCUEMNTED. SEE FLOWSHEET. NEEDS ATTENDED TO. SAFETY AND FALL MEASURES IN PLACED. CALL LIGHT PLACED WITHIN REACH.
[2019-09-08] MEDS: ATORVASTATIN 20 MG TABLET PO SCH (20:59)
--- NOTE | 2019-09-08 21:13 | NUR ---
MEDICATION DUE MEDICATIONS GIVEN ORDERED, TOLERATED WELL. WILL CONTINUE TO MONITOR.
--- NOTE | 2019-09-09 00:15 | NUR ---
PATIENT RESTING: Patient resting quietly. No acute distress noted. Vital signs within normal range.
[2019-09-09] MEDS: PIPERACILLIN/TAZO 3.375/DEX-IS 50 ML IV SCH ×2 (01:30→09:00)
[2019-09-09 01:47] VITALS: BP_SYST 163
--- NOTE | 2019-09-09 02:14 | NUR ---
ROUNDS PATIENT ASLEEP, NO SOB NOR PAIN AND DISCOMFORT NOTED. WILL CONTINUE TO MONITOR.
--- NOTE | 2019-09-09 04:17 | NUR ---
PATIENT RESTING: Patient resting quietly. No acute distress noted. Vital signs within normal range.
--- NOTE | 2019-09-09 06:25 | NUR ---
CLOSING NOTES PATIENT ASLEEP, VITALS STABLE, NO PAIN AND DISCOMFORT AT THIS TIME. ALL NEDS ATTENDED TO. SAFETY MEASURES MAINTAINED. CALL LIGHT PLACED WITHIN REACH.
[2019-09-09 06:39] LABS: BASOPHILS % (AUTO) 0.9 % (0.0-2.0); EOSINOPHILS # (AUTO) 0.3 K/uL (0.0-0.4); EOSINOPHILS % (AUTO) 5.7 % (0.0-4.0); HEMATOCRIT 28.1 % (36-54); HEMOGLOBIN 9.3 g/dL (14.0-18.0); LYMPHOCYTES # (AUTO) 1.7 K/uL (1.0-5.5); LYMPHOCYTES % (AUTO) 32.8 % (20.5-51.5); MEAN CORPUSCULAR HEMOGLOBIN 28 pg (27-31); MEAN CORPUSCULAR HGB CONC 33 % (32-36); MEAN CORPUSCULAR VOLUME 83 fL (79.0-98.0); MONOCYTES # (AUTO) 0.6 K/uL (0.0-1.0); MONOCYTES % (AUTO) 12.3 % (1.7-9.3); NEUTROPHILS # (AUTO) 2.4 K/uL (1.8-7.7); NEUTROPHILS % (AUTO) 48.3 % (40.0-70.0); PLATELET COUNT (AUTO) 237 K/uL (130-430); RED BLOOD CELL COUNT(AUTO) 3.39 MIL/uL (4.2-6.2); RED CELL DISTRIBUTION WIDTH 14.6 % (9.0-15.0); WHITE BLOOD COUNT (AUTO) 5.1 K/uL (4.8-10.8)
[2019-09-09 07:00] VITALS: BP_SYST 154
[2019-09-09 07:12] LABS: ALBUMIN 2.3 g/dL (3.4-4.8); C-REACTIVE PROTEIN QUANT 2.9 mg/dL (0-0.5); CALCIUM 8.2 mg/dL (8.4-11.0); CREATININE 1.74 mg/dL (0.55-1.30); POTASSIUM 3.4 mmol/L (3.5-5.1); TOTAL BILIRUBIN 0.4 mg/dL (0.0-1.0)
[2019-09-09 08:00] VITALS: BP_SYST 154
[2019-09-09 08:22] LABS: ERYTHROCYTE SEDIMENTATION RATE 81 MM/HR (0-15)
[2019-09-09] MEDS: FLUTICASONE PROPIONATE 50 mCg/SPRAY 16 GM NS SCH (09:00)
[2019-09-09] MEDS: TAMSULOSIN HCL 0.4 MG CAP PO SCH (09:26)
[2019-09-09] MEDS: FUROSEMIDE 40 MG TABLET PO SCH (09:29)
[2019-09-09] MEDS: PANTOPRAZOLE SODIUM 40 MG TAB PO SCH (09:29)
[2019-09-09] MEDS: POTASSIUM CHLORIDE 20 MEQ TAB.PRT.SR PO SCH (09:30)
[2019-09-09] MEDS: FERROUS GLUCONATE 300 MG TABLET PO SCH (09:30)
[2019-09-09] MEDS: METOCLOPRAMIDE HCL 10 MG TABLET PO SCH (09:31)
[2019-09-09] MEDS: ASPIRIN 81 MG TABLET(ECOTRIN) PO SCH (09:31)
[2019-09-09] MEDS: MULTIVITAMINS TAB 1 TABLET PO SCH (09:32)
[2019-09-09] MEDS: FOLIC ACID 1 MG TABLET PO SCH (09:32)
[2019-09-09] MEDS: CARVEDILOL 12.5 MG TABLET (COREG) PO SCH (09:32)
[2019-09-09] MEDS: hydrALAZINE HCL 25 MG TABLET PO SCH (09:33)
[2019-09-09] MEDS: NIFEDIPINE 90 MG TABLET.SA (PROCARDIA XL 90 MG) PO SCH (09:39)
[2019-09-09] MEDS ORDERED: GUAI5SYR PO (09:40)
[2019-09-09] MEDS ORDERED: LEVO500T89 PO (09:40)
[2019-09-09] MEDS: APIXABAN 2.5 MG TABLET PO SCH (09:42)
[2019-09-09] MEDS ORDERED: POTASSIUM CHLORIDE 20 MEQ TAB.PRT.SR PO ONE (09:45)
[2019-09-09 12:30] VITALS: BP_SYST 153
[2019-09-09 12:41] VITALS: BP_SYST 129
--- NOTE | 2019-09-09 13:45 | NUR ---
Dietitian Recommendations *[facility]. *Encourage pt to increase PO intake. *Consider adding DM specific ONS by f/u if PO intake remains <50%. Please see Nutritional Assessment for details. AUGUST, RD
--- NOTE | 2019-09-13 16:32 | NUR ---
Discharge Follow Up Phone Call Phoned [facility]. Was sent to [employer]. Left a message for them to call with any questions or concerns.
== END 2019-09-09 14:40 | disposition home or self-care (01) | DRG 190 ==
LOC: SED 15:37 → STU 17:59 → SMU 09-07 13:54
PROVIDERS: ADMIT Preventive Medicine Preventive Medicine/Occupational Environmental Medicine; ATTEND Preventive Medicine Preventive Medicine/Occupational Environmental Medicine
DX: I21.A1 Myocardial infarction type 2 (principal); J69.0 Pneumonitis due to inhalation of food and vomit; E43 Unspecified severe protein-calorie malnutrition; N17.9 Acute kidney failure, unspecified; E11.21 Type 2 diabetes mellitus with diabetic nephropathy; E83.51 Hypocalcemia; D64.9 Anemia, unspecified; E78.5 Hyperlipidemia, unspecified; I12.9 Hypertensive chronic kidney disease with stage 1 through stage 4 chronic kidney disease, or unspecified chronic kidney disease; N18.9 Chronic kidney disease, unspecified; E87.1 Hypo-osmolality and hyponatremia; E87.6 Hypokalemia; E11.22 Type 2 diabetes mellitus with diabetic chronic kidney disease; E11.65 Type 2 diabetes mellitus with hyperglycemia; E83.39 Other disorders of phosphorus metabolism; J44.0 Chronic obstructive pulmonary disease with (acute) lower respiratory infection; K21.9 Gastro-esophageal reflux disease without esophagitis; N13.9 Obstructive and reflux uropathy, unspecified; Z79.899 Other long term (current) drug therapy
CPT/HCPCS: 36415; 70220-TC; 71045; 76770; 80048; 80053; 81000-TC; 82962; 83605; 83735-TC; 83880; 84100-TC; 84484; 85025; 85610-TC; 85651-TC; 85730-TC; 86140; 86710; 87040-TC; 87070-TC; 87081; 87086; 87205-TC; 93005; 94640; 96365; 99285; G0378; J1815; J2543; J7120; J7613; J8597